=== PATIENT | female | born 1950 | race Caucasian/White ===

== ENCOUNTER 2020-03-16 08:09 | Outpatient (CLI) | payer MEDICARE, SELFPAY ==
--- NOTE | ~2020-03-16 | MM_ITS ---
EXAMINATION: MM screening tam BI w michele HISTORY: Screening mammogram TECHNIQUE: Craniocaudal and mediolateral oblique 3-D tomosynthesis images were obtained and synthetic 2-D images were generated. CAD analysis was submitted and interpreted. COMPARISON: 02/28/2019, 02/25/2018, 02/23/2017 bilateral digital screening mammogram examinations BREAST PARENCHYMAL COMPOSITION: There are scattered areas of fibroglandular density. FINDINGS: There is no evidence of suspicious mass, calcification, or architectural distortion to sugg est malignancy in either breast. There has been no suspicious interval change. IMPRESSION: 1. No mammographic evidence of malignancy. 2. Recommend routine screening mammography in one year. BI-RADS Category 1: Negative Reviewed, dictated and finalized at location A.
== END 2020-03-16 08:10 | disposition home or self-care (01) ==
PROVIDERS: PCP Obstetrics & Gynecology; Visit Provider Obstetrics & Gynecology
DX: Z12.31 Encounter for screening mammogram for malignant neoplasm of breast (principal)
CPT/HCPCS: 77063; 77067

== ENCOUNTER 2021-05-29 16:27 | Outpatient (CLI) | payer MEDICARE, SELFPAY ==
--- NOTE | ~2021-05-29 | MM_ITS ---
EXAMINATION: MM screening tam BI w michele HISTORY: Screening TECHNIQUE: Craniocaudal and mediolateral oblique 3-D tomosynthesis images were obtained and synthetic 2-D images were generated. CAD analysis was submitted and interpreted. COMPARISON: Comparison to multiple prior studies sequentially, with oldest reviewed study dated 02/19. BREAST PARENCHYMAL COMPOSITION: There are scattered areas of fibroglandular density. FINDINGS: There is no evidence of suspicious mass, calcification, or architectural distortion to sugg est malignancy in either breast. There has been no suspicious interval change. IMPRESSION: 1. No mammographic evidence of malignancy. 2. Recommend routine screening mammography in one year. BI-RADS Category 1: Negative Reviewed, dictated and finalized at location A.
== END 2021-05-29 16:28 | disposition home or self-care (01) ==
LOC: ANHIMG 16:30
PROVIDERS: PCP Internal Medicine Gastroenterology; Visit Provider Obstetrics & Gynecology
DX: Z12.31 Encounter for screening mammogram for malignant neoplasm of breast (principal)
CPT/HCPCS: 77063; 77067

== ENCOUNTER 2024-12-02 08:41 | Outpatient (CLI) | payer MEDICARE, SELFPAY ==
--- OUTSIDE RECORDS SUMMARY | 2024-12-02 08:45 | XMS_ITS | Data Portability ---
Author Organization [place] [facility] [employer], Main Office Address [address] [place] [address] Care Team Providers Care Hose Tubing Backer Name Role Phone DARLENE HERNANDEZ Primary Care Provider DARLENE HERNANDEZ Referring Provider Assessment Encounter Date Assessment Date Assessment LastModified by Organization Details LastModified Time 02/17/2023 02/17/2023 Patient returns knee pain right. 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 I injected with 20 mg Kenalog 4 cc 1% lidocaine for prescription drug management will try prednisone taper for pain and inflammation discussed. For prescription drug management will try a prednisone taper for pain and inflammation. Not available 02/17/2023 15:05:55 03/17/2023 03/17/2023 Patient returns status post knee pain right. Pain is localized to the right knee mostly on the anterior aspect. She has a positive patellar compression test and equivocal Pato's. She is a bit better with conservative treatment. I would like to leave well enough alone for this time. I recommend she continue with the gentle exercise and anti-inflammatory medication. She needs another injection we can do it at her convenience. I will see her back in a month for follow-up if she hurts discussed. [email or web address] Not available 03/17/2023 14:34:15 10/27/2023 10/27/2023 This note is dictated and transcribed by [employer]. Bookbinder Apprentice variances may occur. Despite proofreading, typographical errors may occur. Occasional wrong-word or '[id number]' substitutions may have occurred due to the inherent limitations of voice recording. Read the chart carefully and recognize, using context, where substitutions have occurred. [email or web address] Not available 10/27/2023 10:06:11 Plan of Treatment Reminders Order Date Submit Date Provider Last Modified By Organization Details Last Modified Time Details Appointments None recorded. Lab None recorded. Referral None recorded. Procedures injection/a spiration joint/bursa (PROC) - in office procedure, administere d by provider 2022 023 [email or web address] In-Office Order, Internal Use Only DO Not Attach Compendium DO Not Attach Compendium, Do Not Delete/merge, [id number] 3 14:40:19 Surgeries None recorded. Imaging audiogram + tympanogram 2024 025 [facility] ([facility]), [address] [place], [address], 5 04:19:26 US, foot 2023 024 [facility] ([facility]), [address] [place], [address], 4 18:18:28 XR, knee 2022 023 [email or web address] [facility] [place], [address], [place], [address], 3 15:24:07 Medication Orders Ciprodex 0.3 %-0.1 % ear drops,suspe nsion 2024 025 [facility] [address], [place], [id number], 5 10:52:50 Kenalog 10 mg/mL suspension for injection 2022 023 [email or web address] [facility] #36012, [address], [place], [id number], 5 10:33:14 ropivacaine (PF) 5 mg/mL (0.5 %) injection solution 2022 023 [email or web address] [facility] #62790, [address], [place], [id number], 5 10:33:08 prednisone 10 mg tablets in a dose pack 2022 023 [email or web address] [facility] #33886, [address], [place], [id number], 4 09:43:16 Patient TargetsNo targets recorded. Patient Instructions Encounter Date Encounter Id Patient Instructions Last Modified By Organization Details Last Modified Time 09/22/2024 [id number] prescribed Ciprodex for left Eustachian tube dysfunction. Discussed how to apply eardrops. She will have an audiogram and tympanogram completed for hearing loss. Advised after 2 weeks if she continues to have symptoms to notify the office and she will see Dr. Hinojosa to discuss possible surgical options. Not available 09/22/2024 10:53:38 Reason for Referral None Reported. Results Created Date Observation Date Name Description Value Unit Range Abnormal Flag Note LastModifiedBy Organization Detail LastModifiedTime 02/18/20 23 XR, knee No observ ation record ed. [email or web address] [facility] [place] [address], [place], [address], 02/17/2023 15:04:54 11/03/19 24 11/03/2023 US, foot [facility] [address] [facility], [place] [address] Patien t Name: MATEO BEEBE ion #: [id number] Sex: F : 1949 4 Dictat ed By: Elsa Chowdhury Attend ing Physic soco: BUD DALY [facility] soc[facility]: BUD DALY Exam Date: 2023 08:20 AM Exam Name: US FOOT RT LIMITE D Admitt ing Diagno sis(es ): Exam: Ultras ound of the Soft tissue s - right foot Clinic al Histor y: right foot lump Compar favian: None Techni que: Target ed sonogr aphic evalua tion of the soft tissue s of the right foot was obtain ed utiliz ing graysc fabrice and color Dopple r imagin g. Findin gs/ Impres kiley: Bony protru kiley in the region of the navicu lar bone at the area of intere st. No gangli on cyst. Electr onical ly Signed by: Elsa Chowdhury at 2023 17:17: 13 PM Page 1 [email or web address] [facility] ([facility]) [address] [place] [address], [address], 11/10/2023 15:49:18 Result Notes None recorded. Problems Name Problem SNOMED Code Status Onset Date Resolution Date Notes Provider Name and Address Organization Details Recorded Time Bilateral sacroiliac joint pain 2942631916599 9104 Active 2021 Not Available [facility] 3 05:56:48 Right cervical root neuropathy 6106065744071 9108 Active 2021 Not Available [facility] 3 05:56:48 Anterior ankle impingemen t 368442744 Active 2019 Not Available [facility] 3 05:56:48 Lumbar spondylosi s 464657108 Active 2021 Not Available [facility] 3 05:56:48 Low back pain 116433543 Active 2021 Not Available [facility] 3 05:56:49 Knee pain Active Not Available [facility] 3 05:56:49 Osteoarthr itis 262502881 Active Not Available [facility] 3 05:56:49 Foot pain 83325602 Active 2019 Not Available [facility] 3 05:56:49 Carpal tunnel syndrome 76499009 Active Not Available [facility] 3 05:56:49 Derangemen t of knee 98397423 Active Not Available [facility] 3 05:56:49 Pain of right knee joint 8068298597296 00 Active 2022 RAFAT Barillas null, [facility] [employer] [facility] 3 14:21:00 Chondromal acia of right patella 0666169607621 9108 Active 2022 Yohannes Lazo MD [address], [address], [place], [address] , [facility] [employer] [facility] 3 15:05:01 Heart disease 82769960 Active 2023 Madhavi Ponce null, [facility] [employer] [facility] 4 09:45:41 Mass of subcutaneo us tissue of right foot 3385358673710 9105 Active 2023 Bud Black DPM [address], [address], [place], [address] , [facility] [employer] [facility] 4 10:05:00 Osteophyte of bone 7627939883053 00 Active 2023 Bud Black DPM [address], [address], [place], [address] , [facility] [employer] [facility] 4 10:21:21 Sensorineu ral hearing loss 42615391 Active 2024 Nelly Tanner RN null, [facility] [employer] [facility] 5 10:48:47 Dysfunctio n of left eustachian tube 4160601475699 106 Active 2024 MARGARETH Gonzalez [address], [address], [place], [address] , [facility] [employer] [facility] 5 10:52:23 Problem Notes None recorded. Procedures Surgical History Date Name Laterality Status Provider Name and Address Organization Details Recorded Time 02/18/20 Ortho - Cortisone Injection completed Yohannes Lazo MD [address], [address], [place], [address], [facility] [employer] [facility] 02/17/2023 15:03:44 Tubal Ligation completed Not Available [facility] 09/24/2022 05:52:57 tonsillectomy completed Not Available [facility] 09/24/2022 05:52:57 Imaging Results Imaging Date Name Status LastModified by Organiz ation Details LastModified Time 02/17/2023 XR, knee completed [email or web address] [facility] [place] [address], [place], [address], 02/17/2023 15:04:54 11/03/2023 US, foot completed [email or web address] [facility] ([facility]) [address] [facility], [place], [address], 11/10/2023 15:49:18 Procedure Notes None recorded. Medical Equipment None Reported. Allergies Allergen ID Allergen Name Allergen Category Reaction Reaction Severity Criticality Documentation Date Start Date Code Code System Note Provider Name and Address Organization Details Recorded Time 79123 Product containin g penicilli n (product) medicatio n Not available Not available Not available 09/24/2022 16455 8001 SNOMED Not Available [facility] 06:02:43 Medications Name Sig Start Date Stop Date Status Note LastModified by Organization Details LastModified Time prednisone 10 mg tablet TAKE 1 TABLET BY MOUTH TWICE DAILY 10/26 completed Not Available Not Available Not Available azithromyci n 250 mg tablet 12/03 completed Not Available Not Available Not Available ibuprofen 800 mg tablet TK 1 T PO Q 8 H PRN P 04/06 completed Not Available Not Available Not Available ofloxacin 0.3 % eye drops 10/26 completed Not Available Not Available Not Available hydrocodone 5 mg-acetamin ophen 325 mg tablet TK 1 T PO Q 6 H PRN P 12/03 completed Not Available Not Available Not Available bupivacaine HCl 0.5 % (5 mg/mL) injection solution Take 40 mg by injection route. 06/11 completed Not Available Not Available Not Available alendronate 70 mg tablet TK 1 T PO Q WEEK 04/06 completed Not Available Not Available Not Available betamethaso ne, augmented 0.05 % topical cream 06/27 completed Not Available Not Available Not Available Anucort-HC 25 mg suppository USE 1 SUPPOSITO RY DIRECTED QD 04/06 completed Not Available Not Available Not Available clobetasol 0.05 % topical cream APPLY TOPICALLY TO THE AFFECTED AREA TWICE DAILY FOR 30 DAYS 09/22 completed Not Available Not Available Not Available metronidazo le 500 mg tablet TAKE 1 TABLET BY MOUTH TWICE DAILY 10/26 completed Not Available Not Available Not Available levofloxaci n 250 mg tablet TAKE 1 TABLET BY MOUTH EVERY DAY 10/26 completed Not Available Not Available Not Available sulfamethox azole 800 mg-trimetho prim 160 mg tablet 06/27 completed Not Available Not Available Not Available ketorolac 0.5 % eye drops 10/26 completed Not Available Not Available Not Available prednisone 10 mg tablets in a dose pack Take 1 tab by mouth, 3 times a day for 3 daysTake 1 tab by mouth 2 times a day for 2 daysTake 1 tab by mouth once a day for 1 day 10/26 completed Not Available Not Available Not Available prednisolon e acetate 1 % eye drops,suspe nsion INSTILL 1 DROP INTO LEFT EYE QID SHAKE 30 TIMES BEFORE USE 10/26 completed Not Available Not Available Not Available lorazepam 0.5 mg tablet TK 1 T PO QHS PRN FOR INSOMNIA 04/06 completed Not Available Not Available Not Available Kenalog 10 mg/mL suspension for injection Take 20 mg by injection route. 09/22 completed [facility]: [phone] Not Available Not Available Not Available amlodipine 10 mg tablet TAKE 1 TABLET BY MOUTH EVERY DAY active Not Available Not Available No t Available benzonatate 100 mg capsule TAKE 1 CAPSULE BY MOUTH THREE TIMES DAILY NEEDED 10/26 completed Not Available Not Available Not Available hydrocodone 7.5 mg-acetamin ophen 325 mg tablet TK 1 T PO Q 4 H PRN P active Not Available Not Available No t Available pantoprazol e 40 mg tablet,michelle yed release TAKE 1 TABLET BY MOUTH ONCE DAILY active Not Available Not Available No t Available triamcinolo ne acetonide 0.1 % topical ointment APPLY TOPICALLY TO THE AFFECTED AREA TWICE DAILY APPLY TO RASH NEEDED 06/11 completed Not Available Not Available Not Available clotrimazol e-betametha sone 1 %-0.05 % topical cream APPLY CREAM TOPICALLY TO AFFECTED AREA TWICE DAILY 10/26 completed Not Available Not Available Not Available triamcinolo ne acetonide 55 mcg nasal spray aerosol SPRAY 1 SPRAY IN EACH NOSTRIL ONCE DAILY 06/11 completed Not Available Not Available Not Available metoprolol tartrate 50 mg tablet TAKE 1 TABLET BY MOUTH TWICE DAILY WITH FOOD active Not Available Not Available No t Available diclofenac sodium 75 mg tablet,michelle yed release 04/06 completed Not Available Not Available Not Available bisacodyl 5 mg tablet,michelle yed release TK 6 TS PO AT 8 AM ON THE 04/06 completed Not Available Not Available Not Available furosemide 20 mg tablet TK 07/28 T PO D PRF SWELLING 04/06 completed Not Available Not Available Not Available gabapentin 100 mg capsule 04/06 completed Not Available Not Available Not Available cefdinir 300 mg capsule TAKE 1 CAPSULE BY MOUTH TWICE DAILY FOR 5 DAYS 09/22 completed Not Available Not Available Not Available betamethaso ne dipropionat e 0.05 % lotion APPLY LOTION TOPICALLY TO AFFECTED AREA TWICE DAILY 10/26 completed Not Available Not Available Not Available doxycycline hyclate 100 mg tablet TAKE 1 TABLET BY MOUTH TWICE DAILY FOR 10 DAYS 06/28 completed Not Available Not Available Not Available bacitracin- polymyxin B 500 unit-10,000 unit/gram eye ointment APPLY A SMALL AMOUNT INTO AFFECTED EYE [facility] 04/06 completed Not Available Not Available Not Available azithromyci n 500 mg tablet 05/29 completed Not Available Not Available Not Available ciprofloxac in 0.3 %-dexametha sone 0.1 % ear drops,suspe nsion INSTILL 4 DROPS INTO THE LEFT EAR TWICE DAILY FOR 7 DAYS active Not Available Not Available No t Available rosuvastati n 10 mg tablet TAKE 1 TABLET BY MOUTH EVERY DAY 06/11 completed Not Available Not Available Not Available ibandronate 150 mg tablet TAKE 1 TABLET BY MOUTH ONCE MONTHLY active Not Available Not Available No t Available Calcium 600 active Not Available Not A vailable Not Available Centrum active Not Available Not Avail able Not Available Amitiza 24 mcg capsule TAKE 1 CAPSULE BY MOUTH TWICE DAILY WITH FOOD 10/26 completed Not Available Not Available Not Available GaviLyte-G 236 gram-22.74 gram-6.74 gram-5.86 gram oral solution 12/03 completed Not Available Not Available Not Available krill oil active Not Available Not Carolyn ilable Not Available ropivacaine (PF) 5 mg/mL (0.5 %) injection solution Take 20 mg by injection route. 09/22 completed [facility] [phone] Not Available Not Available Not Available Linzess 290 mcg capsule TK ONE C PO QD 04/06 completed Not Available Not Available Not Available Fluzone High-Dose 2014- (PF) 180 mcg/0.5 mL intramuscul ar syringe 04/06 completed Not Available Not Available Not Available Fluad 65yr up(PF)45 mcg(15 mcgx3)/0.5 mL intramuscul ar syringe ADM 0.5ML IM UTD 04/06 completed Not Available Not Available Not Available Fluzone High-Dose (PF) 180 mcg/0.5 mL intramuscul ar syringe ADM 0.5ML IM UTD 04/06 completed Not Available Not Available Not Available Fluad Quad (6 5yr up)(PF) 60 mcg (15 mcg x 4)/0.5mL IM syringe ADM 0.5ML IM UTD 06/27 completed Not Available Not Available Not Available BinaxNOW COVID-19 Ag Self Test kit Use as Directed on the Package 10/26 completed Not Available Not Available Not Available Vitals Date Recorded Body height Body mass index (BMI) Body weight Provider Name and Address Organization Details Last Updated DateTime 02/17/2023 167.64 cm 21 kg/m2 93919.01 g RAFAT Barillas [facility] 02/17/2023 14:18:48 Date Recorded Body height Body mass index (BMI) Body weight Provider Name and Address Organization Details Last Updated DateTime 03/17/2023 167.64 cm 20.8 kg/m2 59894.42 juan RAFAT Barillas [facility] 03/17/2023 14:01:02 Date Recorded Body height Body mass index (BMI) Body weight Provider Name and Address Organization Details Last Updated DateTime 10/27/2023 167.64 cm 21 kg/m2 06452.01 g Madhavi Ybarrad [facility] 10/27/2023 09:40:22 Date Recorded Body height Body mass index (BMI) Body weight Heart rate Systolic blood pressure Diastolic blood pressure Provider Name and Address Organization Details Last Updated DateTime 167.64 cm 21 kg/m2 67433.0 1 g 71 /min 124 mm[Hg] 71 mm[Hg] Madhavi Kris [facility] 09:33:20 Date Recorded Body height Body mass index (BMI) Body weight Provider Name and Address Organization Details Last Updated DateTime 09/22/2024 167.64 cm 22.3 kg/m2 59222.47 g Nelly Tanner RN [facility] 09/22/2024 10:29:38 Social History Question Answer Notes LastModified by Organizat ion Details LastModified Time Tobacco Smoking Status Never Smoker Not Available [facility] 09/24/2022 05:52:38 What Is Your Level Of Alcohol Consumption? None [id number] Information not available 09/24/2022 In The 14 Days Before Symptom Onset, Have You Had Close Contact With A Laboratory-confirm ed COVID-19 While That Case Was Ill? No [id number] Information not available 09/24/2022 In The 14 Days Before Symptom Onset, Have You Had Close Contact With A Person Who Is Under Investigation For COVID-19 While That Person Was Ill? No [id number] Information not available 09/24/2022 Have You Recently Traveled Abroad? No [id number] Information not available 09/24/2022 Sex: Unknown Functional Status None recorded. Mental Status None recorded. Family History Relationship Description Onset Age of this Age Resolved Age Notes LastModified by Organization Details LastModified Time Unspecified Relation Heart disease [id number] Not available 09/24/2022 05:52:58 Unspecified Relation Hypertensive disorder [id number] Not available 09/24/2022 05:52:58 Unspecified Relation Arthritis [email or web address] Not available 024 09:45:57 Unspecified Relation Osteoporosis [email or web address] Not available 08/2023 09:46:08 Notes:NO ENT Medical History Condition Response HIGH CHOLESTEROL / HYPERLIPIDEMIA N DIABETES, TYPE N VASCULAR DISEASE Y HEART DISEASE/HEART PROBLEMS Y HYPERTENSION Y Gynecological HistoryNo gynecological history recorded. Obstetrics History GPAL:G 0 P 0 0 0 0 Past Encounters Encounter ID Performer Location Encounter Start Date Encounter Closed Date Diagnosis/Indication Diagnosis SNOMED-CT Code Diagnosis ICD10 Code Diagnosis Note [id number] [facility]_M [facility]_ DEFAULT_1 _1 , 06/28/2021 00:00:00 06/28/2021 11:25:12 [id number] Yohannes Lazo MD [facility] [place] [address] [place] [address] 09/26/2021 00:00:00 09/26/2021 16:20:51 [id number] Yohannes Lazo MD [facility] [place] [address] [place] [address] 11/07/2021 00:00:00 11/07/2021 11:22:58 [id number] Kip Hinojosa MD [facility] [place] [address] [place] [address] 06/12/2022 00:00:00 06/12/2022 12:00:45 [id number] Yohannes Lazo MD [facility] [place] [address] [place] [address] 02/17/2023 13:52:32 02/17/2023 15:24:07 Pain of right knee joint 5533581862 56241 M25.561 Chondromal acia of right patella 3432316954 0476620 M22.41 [id number] Yohannes Lazo MD [facility] [place] [address] [place] [address] 03/17/2023 13:56:38 03/17/2023 14:43:33 Chondromalacia of right patella 1361904884 7819166 M22.41 [id number] Bud Black DPM [facility] [place] [address] [facility] [address] [place] [address] 10/27/2023 09:37:29 10/27/2023 10:31:10 Mass of subcutaneous tissue of right foot 6465403433 9202634 R22.41 medial right footobtain testing to rule out etiology possible ganglionco ntinue offloading and supportive shoe gearfollow -up to review testing possible MRI depending on test results [id number] Bud Black DPM [facility] [place] [address] [facility] [address] [place] [address] 11/17/2023 09:30:30 11/17/2023 10:38:18 Mass of subcutaneous tissue of right foot 2792001105 3795210 R22.41 ultrasound negexam foot daily for changes if present return for cont testingcon t supportive shoe gearfollow up as needed Osteophyte of bone 46727 01022 15679 M77.9 navicular - as above [id number] Kip Hinojosa MD [facility] [place] [address] [place] [address] 09/22/2024 10:26:14 09/22/2024 10:54:23 Sensorineural hearing loss 34827792 H90.5 Dysfunctio n of left eustachian tube 2962721834 700130 H69.92 Health Concerns Section Related Observation LastModified by Organization Detai ls LastModified Time None Recorded Concern Status LastModified by Organization Details LastModified Time None Recorded Advance Directives Directive None Recorded Payers Encounter Date Sequence Insurance Name Policy Number Policy Rosenberg Covered Member ID Rosenberg Member ID Guarantor Name 02/17/2023 1 [place] Mateo Byrnesy [id number] Mateo Yoshi 02/17/2023 2 [employer] - PLAN G (MEDICARE SUPPLEMENT) Mateo Byrnesy [id number] Mateo Penasco 03/17/2023 1 [place] Mateo Nicholstley [id number] 01 Mateo Yoshi 03/17/2023 2 [employer] - PLAN G (MEDICARE SUPPLEMENT) Mateo Byrnesy [id number] 1 Mateo Penasco 10/27/2023 1 [place] Mateo Byrnesy [id number] 01 Mateo Yoshi 10/27/2023 2 [employer] - PLAN G (MEDICARE SUPPLEMENT) Mateo Nicholstley [id number] 1 Mateo Penasco 11/17/2023 1 [place] Mateoann Byrnesy [id number] 1 [id number] 01 Mateo Penasco 11/17/2023 2 [employer] - PLAN G (MEDICARE SUPPLEMENT) Mateoann Nicholstley [id number] 1 Mateo Penasco 09/22/2024 1 [place] Mateo Byrnesy [id number] 01 Mateo Yoshi 09/22/2024 2 [employer] - PLAN G (MEDICARE SUPPLEMENT) Mateo Nicholstley [id number] 1 Mateo Penasco Notes Date Note Type Note Provider Name and Address Organization Details Recorded Time 02/17/2023 text/html KneeReported bypatient.Location: anterior Quality:aching; burning; throbbing Severity:moderate Duration:continuous since onset Timing:chronic; recurrent; intermittent episodes lasting: Context:cannot identify Alleviating Factors:lying down; rest; elevation; stretching Aggravating Factors:twisting; bending/squatting Associated Symptoms:swelling;w armth;popping/click ing Previous PT:helped a little Yohannes Lazo MD [address], [place] [address], [place], [address], [facility] 02/17/2023 15:06:02 03/17/2023 text/html Patient presents knee pain right. She has got tenderness to palpation pain to manipulation right knee. Pain remains in the front of the knee and it is worse with activity. Yohannes Lazo MD [address], [address], [place], [address], [facility] 03/17/2023 14:35:49 10/27/2023 text/html . Patient is a 73-year-old female who presents the office with complaints of pain to her right foot. Patient states that she has noticed a soft tissue lesion under the skin that has formed and cause pain with shoe gear. Patient denies any changes to the overlying skin. Patient denies any open wounds or infection. 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 Patient states this has been ongoing for about a month or so. Patient denies any treatment for this condition. Bud Black DPM [address], [address], [place], [address], [facility] 10/27/2023 10:09:09 11/17/2023 text/html Patient returns for follow up testing on possible soft tissue mass. ultrasound was neg. and found to be wendy navicular attachment. Patient denies any new complaints. Patient is to watch the area if becomes painful or has any changes to soft tissue to return for further testing. Bud Black DPM [address], [address], [place], [address], [place] 11/17/2023 10:22:25 09/22/2024 text/html This patient has a past medical history significant for carpal tunnel syndrome, heart disease, OA, and lumbar spondylosis who presents to the office with a complaint of left otalgia that began 2.5 weeks ago. She reports presenting to the urgent Care 2 weeks ago and was prescribed cefdinir without symptom relief. She does not believe that her hearing has been greatly affected however her does report that she has been having difficulty hearing. She reports the otalgia as intermittent sharp stabbing pains that are worsened with increasing her left arm above her head. 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 She does not believe that this has any relation to her current symptoms. MARGARETH Gonzalez [address], [address], [place], [address], [place] 09/22/2024 10:53:42 OBGyn Episode No OBEpisode recorded.
--- OUTSIDE RECORDS SUMMARY | 2024-12-02 08:45 | XMS_ITS | Clinical Summary ---
Author Organization [facility] Address [address] [place] [address] Care Team Providers Care Oral And Maxillofacial Pathologist Name Role Phone Unavailable Primary Care Provider Unavailabl e Source Comments [facility],non-owned Affiliates and Associated Physician Practices is amultiple site organization consisting of ambulatory clinics and hospital sitesin [place], [place], [place] and [place]. This disclosure is being madepursuant to the Care Everywhere program and may not contain all information available regarding this patient. Last updated 18.[facility] [employer] Allergies No known active allergies Immunizations Immunization Administration Dates Next Due INFLUENZA VACCINE, HIGH-DOSE , QUADR. (FLUZONE HIGH-DOSE QUADRIVALENT; 65Y+), 0.7 ML (HD-IIV4) 05/13/2016 Social History Tobacco Use Types Packs/Day Years Used Date Smoking Tobacco: Never Assessed Comments Unknown Sex and Gender Information Value Date Recorded Sex Assigned at Not on file Legal Sex Female 1:26 PM CDT Gender Identity Not on file Sexual Orientation Not on file Plan of Treatment Health Maintenance Due Date Last Done Comments BONE DENSITY TESTING 1950 HEPATITIS C SCREENING 01/23/1966 DTAP/TDAP/TD VACCINES (1 - Tdap) 01/27/1967 PNEUMOCOCCAL VACCINE 50+ (1 of 1 - PCV) 01/27/1998 ZOSTER VACCINE (1 of 2) 01/27/1998 Respiratory Syncytial Virus (RSV) Vaccine Pt: or over 60 yrs (1 - 1-dose 75+ series) 01/27/2023 COVID-19 VACCINE (1 - 2023-2 5 season) 2024 DEPRESSION SCREENING 07/27/2024 INFLUENZA VACCINE (Season Ended) 2025 05/13/20 16 HEPATITIS B VACCINE Aged Out No longe r eligible based on patient's age to complete this topic HIB VACCINE Aged Out No longer eligi ble based on patient's age to complete this topic HPV VACCINE Aged Out No longer eligi ble based on patient's age to complete this topic MENINGOCOCCAL (Group B) VACC INE SHARED DECISION-MAKING Aged Out No longer eligibl e based on patient's age to complete this topic MENINGOCOCCAL GROUPS A/C/Y/W VACCINE Aged Out No longer eligible b ased on patient's age to complete this topic Insurance LUIS
--- OUTSIDE RECORDS SUMMARY | 2024-12-02 08:45 | XMS_ITS | CONTINUITY OF CARE DOCUMENT ---
Author Name luis smith Address Unknown Organization [facility] Address [address] [place] [address] Phone [phone] Care Team Providers Care Spd Tech Name Role Phone Antonio CARMONA, Hugo Unavailable DARLENE HERNANDEZ MD Unavailable DARLENE HERNANDEZ MD Unavailable [phone] PROBLEMS Condition Status Date Provider Notes Exposure to SARS-associated coronavirus active Hugo Alvarez MD Other symptoms involving cardiovascular system completed - Hugo Alvarez MD Chest pain, non-cardiac active Hugo smith MD Mitral insufficiency, mild active Hugo hughes MD Aortic regurgitation, mild active Hugo hughes MD Hypertension active ? Hugo Alvarez MD Hyperlipidemia active Hugo Alvarez MD Cardiology examination active Hugo Alvarez MD ENCOUNTERS Date Type Provider Location Encounter Diag nosis - In-person encounter Office Visit Hugo Alvarez MD [facility] Office Cardiology examinati on - In-person encounter Office Visit Hugo Alvarez MD [facility] - In-person encounter Office Visit Hugo Alvarez MD [facility] Hyperlipidemia - In-person encounter Office Visit Hugo Alvarez MD [facility] - In-person encounter Office Visit Hugo Alvarez MD [facility] - In-person encounter Office Visit Hugo Alvarez MD [facility] - In-person encounter Office Visit Hugo Alvarez MD [facility] - In-person encounter Office Visit Hugo Alvarez MD [facility] - In-person encounter Office Visit Hugo Alvarez MD [facility] - In-person encounter Office Visit Hugo Alvarez MD [facility] - In-person encounter Office Visit Hugo Alvarez MD [facility] [place] - In-person encounter Office Visit Hugo Alvarez MD [facility] - In-person encounter Office Visit Hugo Alvarez MD [facility] - In-person encounter Office Visit Hugo Alvarez MD [facility] Other symptoms involving cardiovascular systemMitral insufficiency, mild - In-person encounter Office Visit Hugo Alvarez MD [facility] Chest pain, non-cardiacMitral insufficiency, mildAortic regurgitation, mildHypertension VITAL SIGNS Date Observation Value Provider Body Mass Index (Ratio) 21.61 kg/m2 Petros Alvarez MD blood pressure, diastolic 68 mm[Hg] Moon Duggan blood pressure, systolic 112 mm[Hg] Mandy Duggan oxygen saturation, oximetry 98 % Lilian Duggan pulse rate 58 /min Lilian Duggan respiratory rate E&M 12 /min Lilian Duggan weight E&M 138 [lb_av] Lilian Duggan height E&M 67 [in_i] Lilian Duggan blood pressure, cuff size regular Moon Duggan Body Mass Index (Ratio) 21.30 kg/m2 Petros Alvarez MD blood pressure, diastolic 68 mm[Hg] Li nkLog blood pressure, systolic 99 mm[Hg] Esperanza Hensonog pulse rate 67 /min Rosa [place] blood pressure, cuff size regular Madisyn powell [place] blood pressure, diastolic 68 mm[Hg] Madisyn [facility] blood pressure, systolic 110 mm[Hg] Simon [facility] respiratory rate E&M 16 /min Rosa Degroot brittany oxygen saturation, oximetry 98 % [facility] weight E&M 136 [lb_av] [facility] height E&M 67 [in_i] [facility] Body Mass Index (Ratio) 19.89 kg/m2 Petros Alvarez MD blood pressure, diastolic 74 mm[Hg] Little nkLogjosé miguel blood pressure, systolic 117 mm[Hg] [facility], diastolic 74 mm[Hg] [facility] Jimenez blood pressure, systolic 117 mm[Hg] Israel Jimenez oxygen saturation, oximetry 96 % Tia Jimenez pulse rate 65 /min Tia Jimenez respiratory rate E&M 16 /min Tia pyle weight E&M 127 [lb_av] Tia Jimenez height E&M 67 [in_i] Tia Jimenez Body Mass Index (Ratio) 21.30 kg/m2 Petros Alvarez MD blood pressure, cuff size regular Marques Velez blood pressure, diastolic 90 mm[Hg] Tr jose david Velez blood pressure, systolic 120 mm[Hg] Raisa Velez oxygen saturation, oximetry 99 % Germán Velez respiratory rate E&M 16 /min Germán Velez pulse rate 60 /min Germán Velez weight E&M 136 [lb_av] Germán Velez height E&M 67 [in_i] Germán Velez Body Mass Index (Ratio) 20.52 kg/m2 Petros Alvarez MD blood pressure, cuff size regular Ke rri Candy blood pressure, diastolic 60 mm[Hg] Ke rri Candy blood pressure, systolic 92 mm[Hg] Norma marco Gupta oxygen saturation, oximetry 98 % Layla Gupta respiratory rate E&M 16 /min Layla love pulse rate 79 /min Layla Azul lder weight E&M 131 [lb_av] Layla Azul er height E&M 67 [in_i] Layla Stormye er Body Mass Index (Ratio) 20.20 kg/m2 Petros Alvarez MD blood pressure, diastolic 80 mm[Hg] Jluis Sanchez blood pressure, systolic 129 mm[Hg] Maritza Sanchez oxygen saturation, oximetry 94 % Yajaira Sanchez respiratory rate E&M 18 /min Lg Sanchez pulse rate 59 /min Yajaira marin weight E&M 129 [lb_av] Yajaira marin height E&M 67 [in_i] Yajaira marin Body Mass Index (Ratio) 21.77 kg/m2 Petros Alvarez MD blood pressure, diastolic 70 mm[Hg] Da rachelle Arianna blood pressure, systolic 118 mm[Hg] Dac ia Arianna oxygen saturation, oximetry 98 % Claudia Arianna respiratory rate E&M 16 /min Claudia V oss pulse rate 60 /min Claudia Arianna weight E&M 139 [lb_av] Claudia Arianna height E&M 67 [in_i] Claudia Arianna Body Mass Index (Ratio) 22.46 kg/m2 Petros Alvarez MD blood pressure, diastolic 68 mm[Hg] Jluis Braun Daniel blood pressure, systolic 109 mm[Hg] Maritza Pride Sanchez oxygen saturation, oximetry 96 % Yajaira Sanchez respiratory rate E&M 18 /min Lg Sanchez pulse rate 55 /min Yajaira Watts caluis weight E&M 143.4 [lb_av] Yajaira limluis height E&M 67 [in_i] Yajaira Watts tania Body Mass Index (Ratio) 22.39 kg/m2 Petros Alvarez MD blood pressure, diastolic 80 mm[Hg] Ke rri Candy blood pressure, systolic 130 mm[Hg] Norma Gupta blood pressure, cuff size large Ke rri Candy oxygen saturation, oximetry 98 % Layla Gupta respiratory rate E&M 18 /min Layla love pulse rate 67 /min Layla alegriaer weight E&M 143 [lb_av] Layla Liang lder height E&M 67 [in_i] Layla Liang lder Body Mass Index (Ratio) 22.08 kg/m2 Petros Alvarez MD blood pressure, cuff size regular Ke rri Candy blood pressure, diastolic 75 mm[Hg] Ke rri Waltuenepia blood pressure, systolic 118 mm[Hg] Norma lara Candy oxygen saturation, oximetry 98 % Layla Godoyleif respiratory rate E&M 20 /min Layla Matson rickieglynnpia pulse rate 76 /min Layla Liang airam weight E&M 141 [lb_av] aLyla Liang airam height E&M 67 [in_i] Layla Liang [facility] [place] Body Mass Index (Ratio) 22.39 kg/m2 Petros Alvarez MD pulse rate 66 /min Annamaria Johnson respiratory rate E&M 17 /min Annamaria Johnson blood pressure, diastolic 80 mm[Hg] Cade Johnson blood pressure, systolic 105 mm[Hg] Enzo Johnson oxygen saturation, oximetry 99 % Annamaria Johnson blood pressure, cuff size regular Cade Johnson weight E&M 143 [lb_av] Annamaria Johnson height E&M 67 [in_i] Annamaria Johnson Body Mass Index (Ratio) 22.39 kg/m2 Petros Alvarez MD blood pressure, cuff size regular Merle Santa blood pressure, diastolic 70 mm[Hg] Merle Santa blood pressure, systolic 110 mm[Hg] Megan Santa oxygen saturation, oximetry 98 % Ivonne Santa pulse rate 64 /min Ivonne Santa respiratory rate E&M 16 /min Ivonne Santa weight E&M 143 [lb_av] Ivonne Santa height E&M 67 [in_i] Ivonne Santa Body Mass Index (Ratio) 23.49 kg/m2 Petros Alvarez MD blood pressure, cuff size regular Germán Gupta blood pressure, diastolic 91 mm[Hg] Germán Gupta blood pressure, systolic 162 mm[Hg] Norma Burrowsradhaana oxygen saturation, oximetry 99 % Layla Gupta respiratory rate E&M 16 /min Layla zuluagarahdaana pulse rate 87 /min Layla Liang [facility] [place] weight E&M 150 [lb_av] Layla Liang er height E&M 67 [in_i] Layla Liang er blood pressure, diastolic 86 mm[Hg] Jluis Sanchez blood pressure, systolic 146 mm[Hg] Maritza Pride Sanchez pulse rate 65 /min Yajaira Watts caon oxygen saturation, oximetry 97 % Yajaira Sanchez respiratory rate E&M 18 /min Lg Sanchez Body Mass Index (Ratio) 24.15 kg/m2 Berta Sanchez weight E&M 154.2 [lb_av] Yajaira limon Body Mass Index (Ratio) 23.49 kg/m2 Anea jessica Jin blood pressure, diastolic 93 mm[Hg] An eatris Jin blood pressure, systolic 166 mm[Hg] Ane atris Jin pulse rate 62 /min Aneatrjenny Abdi oxygen saturation, oximetry 98 % Aprilatrjenny Abdi respiratory rate E&M 17 /min Aneatri s Jin weight E&M 150 [lb_av] Aneatris Jin height E&M 67 [in_i] Dwight Abdi ALLERGIES Allergy Name Onset Date Reaction Criticality Status PCN Low Criticality active HISTORY OF MEDICATION USE Medication Status Instructions Dates Provider Indications Com ments metoprolol tartrate 50 mg tablet active Take 1 tablet by mouth twice a day 7 Hugo Alvarez MD clotrimazole-beta methasone 1-0.05% cream active Mya Gomez NP pantoprazole 40 mg tablet,delayed release (/EC) completed - 0 Mya Gomez NP rosuvastatin 10 mg tablet completed Take 1 tablet by mouth once a day TAKE 1 TABLET DAILY 4 - 9 Hugo Alvarez MD VISION VITAMINS TABS active 1 tablet once a day Mya Gomez NP MULTIVITAMINS ORAL CAPSULE active 1 tablet once a day Mya Gomez NP Krill Oil ([place] 3 and 6) 1000-130(40-80) mg capsule active 1 capsule once a day Mya Gomez NP CINNAMON CAPSULE completed 1 cap daily - 8 Hugo Alvarez MD VOLTAREN GEL completed as needed for back pain 6 - 8 Cody Luc OXY-POWDER completed 3 pills at bedtime 6 - 8 Cody Turner ibandronate 150 mg tablet active 1 tablet once a month Mya Gomez NP FUROSEMIDE 20 MG ORAL TABLET completed 1/2 tab daily as needed for swelling 6 - 9 Yajaira Sanchez amlodipine 10 mg tablet active Take 1 tablet by mouth once a day 0 Mya Gomez NP VITAMIN C TABLET completed once daily - 9 Yajaira Sanchez FERROUS SULFATE 325 (65 Fe) MG ORAL TABLET completed ONE PER DAY - 9 Yajaira Sanchez pantoprazole 40 mg tablet,delayed release (DR/EC) completed 1 tablet once a day - 3 Tia Jimenez metoprolol tartrate 50 mg tablet completed 1 tablet twice a day 5 - 7 Hugo Alvarez MD FISH OIL CAPSULE completed ONE TAB. 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 Hugo Alvarez MD social history reviewed E&M revi ewed - no changes required Hugo Alvarez MD seatbelt usage 100 % Layla hirsch alcohol use no Layla Liang lder passive cigarette sm keyana exposure no Layla Gupta smoking status Never smoker Layla perezer social history reviewed E&M revi ewed - no changes required Hugo Alvarez MD social history reviewed E&M revi ewed - no changes required Hugo Alvarez MD seatbelt usage 100 % Ivonne Santa alcohol use no Ivonnekiah Santa passive cigarette sm keyana exposure no Ivonne Santa smoking status Never smoker Ivonne Kiet social history reviewed E&M revi ewed - no changes required Hugo Alvarez MD seatbelt usage 100 % Layla Wheeler [place] alcohol use no Layla Liang galen passive cigarette sm keyana exposure no Layla Godoyleif smoking status Never smoker Layla Wheeler [place] social history reviewed E&M revi ewed - no changes required Hugo Alvarez MD seatbelt usage 100 % Yajaira Stone alcohol use no Yajaira marin passive cigarette sm keyana exposure no Yajaira Sanchez smoking status Never smoker Yajaira Stone seatbelt usage 100 % Hugo Alvarez MD alcohol use no Hugo Mcfadden passive cigarette sm keyana exposure no Hugo Alvarez MD social history E&M Marital Statu s: C hildren: 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 Hugo Alvarez MD social history reviewed E&M revi ewed - no changes required Hugo Alvarez MD smoking status Never smoker Aneatris Brow n FAMILY HISTORY Family Member Condition Father Family History Unkno wn Mother Family History of Co ronary Artery Disease: INSURANCE PROVIDERS Payer name Policy type / Coverage type Dominick red democrat ID CIGNA MEDICARE SUPPLEMENT Commercial insurance c [facility] [id number] [place] Medicare [id number] ADVANCE DIRECTIVES Name Date DISCUSSED - NO DECISION MADE TREATMENT PLAN Date Name Performer [id number],B, Hugo smith MD [id number],S, Hugo smith MD [id number],S, Hugo smith MD [id number],S, Hugo smith MD [id number],S, Hugo smith MD [id number],S, Hugo smith MD [id number],S, Hugo smith MD [id number],B, Hugo smith MD Cardiology Hugo Alvarez MD Cardiology Hugo Alvarez MD Cardiology: H er updated medication list for this problem includes: Amlodipine 10 Mg Tablet (Amlodipine) ..... Take 1 tablet by mouth once a day Metoprolol Tartrate 50 Mg Tablet (Metoprolol tartrate) ..... 1 tablet twice a day Hugo Alvarez MD Cardiology: n o recurrentce, negative stress test 2017 Hugo Alvarez MD Cardiology:2019: ECHO trace MR, trace AR, trace TR Mya Gomez BROADCAST PROGRAM DIRECTOR Cardiology:2019: ECH O trace MR, trace AR, trace TR WILL RECHECK ECHO Mya Gomez BROADCAST PROGRAM DIRECTOR Cardiology: B P today: 110/68 P rior BP: 117/74 (07/29/2022) Her updated medication list for this problem includes: Amlodipine 10 Mg Tablet (Amlodipine) ..... Take 1 tablet by mouth once a day Metoprolol Tartrate 50 Mg Tablet (Metoprolol tartrate) ..... 1 tablet twice a day Mya Gomze BROADCAST PROGRAM DIRECTOR Cardiology:07/30/22 ch ol 184, trig 68, HDL 59, LDL 111 will check lipid panel Mya Powellcarmelo BROADCAST PROGRAM DIRECTOR Cardiology:no recurrentce, negat contreras stress test 2016 Mya Hillchago BROADCAST PROGRAM DIRECTOR Cardiology Hugo Alvaerz MD Cardiology Hugo Alvarez MD Cardiology Hugo Alvarez MD Cardiology Hugo Alvarez MD Cardiology Hugo Alvarez MD Cardiology Hugo Alvarez MD Cardiology Hugo Alvarez MD Cardiology Hugo Alvarez MD Cardiology Follow up Hugo mart MD Cardiology Follow up Hugo mart MD Cardiology Follow up Hugo mart MD Cardiology Hugo Alvarez MD Cardiology Hugo Alvarez MD Cardiology Hugo Alvarez MD Cardiology Hugo Alvarez MD Cardiology follow up Hugo mart MD Cardiology follow up Hugo mart MD Cardiology follow up Hugo mart MD Cardiology follow up Hugo mart MD Cardiology Hugo Alvarez MD Cardiology Hugo Alvarez MD Cardiology Hugo Alvarez MD Cardiology Hugo Alvarez MD Cardiology Follow up Hugo mart MD Cardiology Follow up Hugo mart MD Cardiology Follow up Hugo mart MD Cardiology Follow up Hugo mart MD Cardiology Follow up Hugo mart MD Cardiology Follow up Hugo mart MD Cardiology Follow up Hugo mart MD Cardiology Follow up Hugo mart MD Cardiology Hugo Alvarez MD Cardiology Hugo Alvarez MD Cardiology Hugo Alvarez MD Cardiology Hugo Alvarez MD Cardiology Hugo Alvarez MD Cardiology Hugo Alvarez MD Cardiology Hugo Alvarez MD Cardiology Hugo Alvarez MD Cardiology Follow u p Hugo olmos MD Cardiology Follow u p Hugo olmos MD Cardiology Follow u p Hugo olmos MD Cardiology Follow u p Hugo olmos MD Cardiology Hugo Alvarez MD Cardiology Hugo Alvarez MD Cardiology Hugo Alvarez MD Cardiology Hugo Alvarez MD new patient visit Hugo Alvarez MD new patient visit Hugo Alvarez MD new patient visit Hugo Alvarez MD new patient visit: H er updated medication list for this problem includes: Metoprolol Tartrate 50 Mg Tabs (Metoprolol tartrate) ..... One tab. twice daily Hugo Alvarez MD Date Name LIPID PANEL Complete Echo COMPREHENSIVE METABO LIC PANEL, W/EGFR LIPID PANEL HEMOGLOBIN A1c LIPID PANEL COVID19 nasal swab ( LC) Complete Echo Complete Echo STR - Nuclear Complete Echo HISTORY OF PROCEDURES Procedure Date Procedure Name Provider Procedure Notes S tatus EKG Hugo Alvarez MD complete d EKG Hugo Alvarez MD complete d EKG Hugo Alvarez MD complete d EKG Hugo Alvarez MD complete d EKG Hugo Alvarez MD complete d EKG Hugo Alvarez MD complete d SNOMED-CT: 632422042 [id number] Current Medications Documented Hugo Alvarez MD completed SNOMED-CT: 877117649 472726 Current Medications Documented Hugo Alvarez MD completed SNOMED-CT: 437578052 187307 Current Medications Documented Hugo Alvarez MD completed Stress EKG Miracle Hatfield MD complet ed Regadenoson, 4 units Hugo Alvarez MD completed Cardiolite, 2 units Hugo Alvarez MD completed SPECT Images Miracle Hatfield MD compl eted EKG Hugo Alvarez MD complete d SNOMED-CT: 203613242 242315 Current Medications Documented Hugo Alvarez MD completed EKG Hugo Alvarez MD complete d SNOMED-CT: 204850450 664756 Current Medications Documented Hugo Alvarez MD completed EKG Hugo Alvarez MD complete d
--- OUTSIDE RECORDS SUMMARY | 2024-12-02 08:45 | XMS_ITS | Continuity of Care Document ---
Author Organization [facility] Address [address] [place] [address] [place] [address] Phone Care Team Providers Care Document Imaging Specialist Name Role Phone Unavailable Unavailable Unavailable Advance Directives Directive Yes / No Effective Date File Name No Information Encounters Encounter Description Practice Location Reason(s) For Visit Diagnoses Date Provider Providers Copied on Encounter [facility], [id number] [place] [address] [address], [place], [place], [id number], [place] tel:[phone] [facility] No Information Mar-0 2-200 0 No Information Family History Family Member Type Diagnosis Age At Onset No Information Payers Payer name Insurance type Covered constitution party ID Authoriza tion(s) No Information Social History Type Description Quantity Date Captured Comments Sex Female Smoking Status No Information Chief Complaint And Reason For Visit No Information Reason For Referral Reason For Referral No Information History Of Present Illness Encounter Date Complaint History Of Prese nt Illness No Information Functional Status Date Functional Assessmen t No Information Instructions Date Instruction Additional Infor mation No Information Assessments Type Assessment Date No Information Patient Care Teams Name Effective Dates (start - stop) Status Members No Information
[2024-12-02 09:20] LABS: Basophils Percent Auto 0.7 % (0.2-1.2); Eosinophils Absolute Auto 0.2 K/mm3 (0-0.3); Eosinophils Percent Auto 4.4 % (0-4.4); Hematocrit 42.9 % (37.0-47.0); Hemoglobin 14.1 g/dL (12.0-15.0); Immature Granulocyte Absolute 0.02 K/mm3 (0.00-0.031); Immature Granulocyte Percent A 0.4 % (0-0.5); Lymphocytes Absolute Auto 1.93 K/mm3 (0.9-3.2); Lymphocytes Percent Auto 35.5 % (18.3-44.2); Mean Corpuscular HGB Conc 32.9 g/dl (32-36); Mean Corpuscular Hemoglobin 29.5 pg (26-34); Mean Corpuscular Volume 89.7 fl (80-100); Monocytes Absolute Auto 0.4 K/mm3 (0.1-0.6); Monocytes Percent Auto 7.7 % (2.6-8.5); Neutrophils Absolute Auto 2.8 K/mm3 (1.3-6.7); Neutrophils Percent Auto 51.3 % (45.5-73.1); Platelet Count Result 304 k/mm3 (150-375); Red Blood Count 4.78 M/mm3 (4.2-5.4); Red Cell Distribution Width 12.1 % (11.5-14.5); White Blood Count 5.4 K/mm3 (4.5-10.0)
[2024-12-02 09:30] LABS: Add Urine Microscopic? NO; Appearance Urine Clear (Clear); Bilirubin Urine Negative (Negative); Blood Urine Negative (Negative); Color Urine Yellow (Yellow); Glucose Urine UA Negative (Negative); Ketones Urine Negative (Negative); Leukocyte Esterase Ur Negative LEU/UL (Negative); Nitrate Urine Negative (Negative); Protein Urine Negative (Negative); Urobilinogen Urine 0.2 mg/dL (<2.0); pH Urine 8.5 (5.0-9.0)
[2024-12-02 09:30] LABS: Alanine Aminotransferase 29 U/L (6-35); Albumin Level 4.3 g/dL (3.5-5.1); Alkaline Phosphatase 79 U/L (38-126); Anion Gap 6 mmol/L (4-12); Aspartate Amino Transferase 43 U/L (14-36); Bilirubin,Total 0.7 mg/dL (0.2-1.3); Blood Urea Nitrogen 13 mg/dL (7-17); Calcium 9.5 mg/dL (8.4-10.2); Carbon Dioxide 30 mmol/L (22-30); Chloride 102 mmol/L (98-107); Cholesterol 230 mg/dL (0-200); Estimated Glomerular Filt Rate > 60; Glucose 92 mg/dL (65-110); HDL Direct 59 mg/dL; Potassium 4.8 mmol/L (3.4-5.0); Sodium 138 mmol/L (137-145); Triglycerides 116 mg/dL (<150)
[2024-12-02 09:41] LABS: LDL Cholesterol Direct 111 mg/dL
== END 2024-12-02 08:42 | disposition home or self-care (01) ==
PROVIDERS: PCP Internal Medicine Gastroenterology; Visit Provider Family Medicine
DX: K21.9 Gastro-esophageal reflux disease without esophagitis (principal); I10 Essential (primary) hypertension; E78.2 Mixed hyperlipidemia
CPT/HCPCS: 36415; 80048; 80061; 80076; 81003; 84443; 85025

== ENCOUNTER 2025-02-15 15:02 | Outpatient (CLI) | payer MEDICARE, SELFPAY ==
--- NOTE | ~2025-02-15 | MM_ITS ---
EXAMINATION: MM screening tam BI w michele HISTORY: Screening TECHNIQUE: Craniocaudal and mediolateral oblique 3-D tomosynthesis images were obtained and synthetic 2-D images were generated. CAD analysis was submitted and interpreted. COMPARISON: Comparison to multiple prior studies sequentially, with oldest reviewed study dated 02/23. BREAST PARENCHYMAL COMPOSITION: There are scattered areas of fibroglandular density. FINDINGS: There is no evidence of suspicious mass, calcification, or architectural distortion to sug gest malignancy in either breast. IMPRESSION: 1. No mammographic evidence of malignancy. 2. Recommend routine screening mammography in one year. BI-RADS Category 1: Negative Reviewed, dictated and finalized at location B.
--- OUTSIDE RECORDS SUMMARY | 2025-02-15 15:07 | XMS_ITS | Continuity of Care Document ---
Author Organization [facility] Address [address] [place] [address] [place] [address] Phone Care Team Providers Care Client Relations Specialist Name Role Phone Unavailable Unavailable Unavailable Advance Directives Directive Yes / No Effective Date File Name No Information Encounters Encounter Description Practice Location Reason(s) For Visit Diagnoses Date Provider Providers Copied on Encounter [facility], [id number] [place] [address] [address], [place], [place], [id number], [place] tel:[phone] LZZ [facility] No Information Mar-0 2-200 0 No Information Family History Family Member Type Diagnosis Age At Onset No Information Payers Payer name Insurance type Covered libertarian ID Authoriza tion(s) No Information Social History [...]
--- OUTSIDE RECORDS SUMMARY | 2025-02-15 15:07 | XMS_ITS | Clinical Summary ---
Author Organization [facility] Address [address] [place] [address] Care Team Providers Care Commercial Loan Manager Name Role Phone Unavailable Primary Care Provider Unavailabl e Source Comments [facility],non-owned Affiliates and Associated Physician Practices is amultiple site organization consisting of ambulatory clinics and hospital sitesin [place], [place], [place] and [place]. This disclosure is being madepursuant to the Care Everywhere program and may not contain all information available regarding this patient. Last updated 18.[facility] Allergies No known active allergies Immunizations Immunization [...] season) 2024 DEPRESSION SCREENING 07/27/2024 INFLUENZA VACCINE (#1) 2025 05/13/2016 HEPATITIS B VACCINE Aged Out No longe [...]
--- OUTSIDE RECORDS SUMMARY | 2025-02-15 15:07 | XMS_ITS | Data Portability ---
Author Organization [facility], Main Office Address [address] [place] [address] Care Team Providers Care Service Or Work Dispatcher Chief Name Role Phone DARLENE HERNANDEZ Primary Care Provider DARLENE HERNANDEZ Referring Provider MICHAEL SHAW Primary Care Provider Assessment Encounter Date Assessment Date Assessment LastModified by Organization Details LastModified Time 03/17/2023 03/17/2023 Patient returns status post knee pain right. Pain is localized to the right knee mostly on the anterior aspect. She has a positive patellar compression test and equivocal Pato's. She is a bit better with conservative treatment. I would like to leave well enough alone for this time. I recommend she continue with the gentle exercise and anti-inflammator y medication. She needs another injection we can do it at her convenience. I will see her back in a month for follow-up if she hurts discussed. [email or web address] Not available 03/17/2023 14:34:15 10/27/2023 10/27/2023 This note is dictated and transcribed by [employer]. Language Asst variances may occur. Despite proofreading, typographical errors may occur. Occasional wrong-word or '[id number]' substitutions may have occurred due to the inherent limitations of voice recording. Read the chart carefully and recognize, using context, where substitutions have occurred. [email or web address] Not available 10/27/2023 10:06:11 Plan of Treatment Reminders Order Date Submit Date Provider Last Modified By Organization Details Last Modified Time Details Appointments None recorded. Lab None recorded. Referral None recorded. Procedures None recorded. Surgeries None recorded. Imaging CT, head, w/wo contrast - FAX RESULTS TO . THANKS! 2024 025 [facility] ([facility] Sched[facility]), [address] [place], [address], 5 13:20:58 US, foot 2023 024 [facility] ([facility] Scheduling), [address] [place], [address], 4 18:18:28 Medication Orders Ciprodex 0.3 %-0.1 % ear drops,susp ension 2024 025 [email or web address] [id number], [address], [place], [id number], 5 08:35:02 Patient TargetsNo targets recorded. Patient Instructions Encounter Date Encounter Id Patient Instructions Last Modified By Organization Details Last Modified Time 09/22/2024 [id number] prescribed Ciprodex for left Eustachian tube dysfunction. Discussed how to apply eardrops. She will have an audiogram and tympanogram completed for hearing loss. Advised after 2 weeks if she continues to have symptoms to notify the office and she will see Dr. Hinojosa to discuss possible surgical options. [email or web address] Not available 09/22/2024 10:53:38 12/29/2024 [id number] to rule out MIXING OPERATOR disease a head CT is ordered. The audiogram reveals mild to moderate loss. [email or web address] Not available 12/29/2024 14:48:39 Reason for Referral None Reported. Results Created Date Observation Date Name Description Value Unit Range Abnormal Flag Note LastModifiedBy Organization Detail LastModifiedTime 01/13/2001/12/2025 CREAT ININE , I-STA T creatinine 0.9 mg/dL 0.6-1. 3 Not Available [facility] (Lab) [address] [place], [address], 01/16/2025 13:12:08 02/18/20 23 XR, knee No observ ation record ed. [email or web address] [facility] [address], [place], [address], 02/17/2023 15:04:54 11/03/19 24 11/03/2023 [facility], foot [facility] [address] [place] [address] Patien t Name: MATEO BEEBE Access ion #: [id number] Sex: F : 1949 4 Dictat ed By: Elsa Chowdhury Attend ing Physic soco: BUD DALY Orderi ng Physic soco: BUD DALY Exam Date: 2023 08:20 AM Exam Name: US FOOT RT LIMITE D Admitt ing Diagno sis(es ): Exam: Ultras ound of the Soft tissue s - right foot Clinic al Histor y: right foot lump Compar bharti: None Techni que: Target ed sonogr aphic evalua tion of the soft tissue s of the right foot was obtain ed utiliz ing graysc fabrice and color Dopple r imagin g. Findin gs/ Impres vijaya: Bony protru vijaya in the region of the navicu lar bone at the area of intere st. No gangli on cyst. Electr onical ly Signed by: Elsa Chowdhury at 2023 17:17: 13 PM Page 1 [email or web address] [facility] (Imaging) [address] [place], [address], 11/10/2023 15:49:18 12/31/19 25 11/09/2024 audio gram + tympa nogra m No observ ation record ed. [email or web address] [facility] [address] [facility] [address], [place], [address], 12/30/2024 09:54:55 01/13/20 25 01/12/2025 CT, head, w/wo contr ast [facility] [address] [place] [address] [phone] Patien t Name: MATEO BEEBE Access ion #: [id number] Sex: F : 1949 6 Dictat ed By: MARII MOTLEY Attend ing Physic soco: JOHN JOHNSON Orderi Physic soco: ALEX HERRERA Exam Date: 2024 09:03 AM Exam Name: CT HEAD W/WO Admitt ing Diagno sis(es ): Access ion: Examin ation: CT HEAD W/WO CLINIC AL INDICA TION: Otalgi a, left ear. COMPAR BHARTI: None. CONTRA ST USED: Isovue 370. TECHNI QUE: The examin ation was perfor med obtain ing 5 mm slices withou t and with contra st. CT scan done accord ing to ALARA (As Low as Reason ably Achiev able). Multip lanar recons tructi ons were obtain ed. FINDIN GS: SUPRAT ENTORI AL BRAIN: Cerebr al Hemisp heres: There is promin ence of the cerebr al cortic al sulci, cerebe llar foliae , zachary n fissur es, basal cister ns and ventri cular system . There is no midlin e shift or mass effect , intra or extra- axial fluid collec tions or hemorr walter. Perive ntricu lar White Matter /Basal Gangli a: Lacune s in bilate ral customer solutions supervisor al capsul es are noted. Minima l shannon and parave ntricu lar deep white matter ischem ic change s are noted. No other abnorm al areas of altere d attenu ation within the perive ntricu lar white matter or basal gangli a. RURAL CARRIER ASSOCIATE IOR FOSSA: The brains tem is normal and the visual ized cerebe llar hemisp heres are otherw ise unrema rkable . Page 1 [facility] [address], [place] [address] Patien t Name: MATEO BEEBE Access ion #: [id number] Sex: F : 1949 6 Dictat ed By: MARII MOTLEY Attend ing Physic soco: ALEX HERRERA Orderi Physic soco: FAWNJean ALEX STEEN Exam Date: 2024 09:03 AM Exam Name: CT HEAD W/WO Admitt ing Diagno sis(es ): VENTRI CULAR SYSTEM : There is no eviden ce of hydroc ephalu s or transe pendym al flow of cerebr mary l fluid. SKULL BASE AND PARASE LLAR REGION : The skull base is normal with no parase llar masses or abnorm alitie s identi fied. Bilate ral customer solutions supervisor al audito ry canals appear intact with good pneuma tizati on of the mastoi ds. CALVAR IUM AND SCALP REGION : No abnorm ality is seen. PARANA VIJAYA SINUSE S: No signif icant inflam matory change s are identi fied in the parana vijaya sinuse s. IMPRES VIJAYA: 1. Age-re lated atroph y. 2. Lacune s in bilate ral customer solutions supervisor al capsul es are noted. 3. Minima l shannon and parave ntricu lar deep white matter ischem ic change s are noted. 4. No intra- axial or extra- axial hemato ma or midlin e shift is seen. 5. Bilate ral customer solutions supervisor al audito ry canals appear intact with good pneuma tizati on of the mastoi ds. 6. No other intrac ranial abnorm ality detect ed. Electr onical ly Signed 025 12:20 TOLU Degroot Electr onical ly Signed by: MARII MOTLEY at 2024 12:20: 00 PM Page 2 [email or web address] [facility] (Imaging) [address] [place], [address], 01/17/2025 16:06:49 01/14/20 25 01/13/2025 CT, head, w/wo contr ast No observ ation record ed. [facility] (One Call Scheduling) [address] [place], [address], 01/13/2025 12:27:37 Result Notes Documentation Provider Name and Address Organization Details Recorded Time Ct, Head, W/wo Contrast : [facility] [address] [place] [address] Patient Name: MATEO BELLE Sex: F : 1950 Dictated By: FABIAN MOTLEY Attending Physician: ANISHA JOHNSON Ordering Physician: ALEX HINOJOSA Exam Date: 01/12/2025 09:03 AM Exam Name: CT HEAD W/WO Admitting Diagnosis(es): Examination: CT HEAD W/WO CLINICAL INDICATION: Otalgia, left ear. COMPARISON: None. CONTRAST USED: Isovue 370. TECHNIQUE: The examination was performed obtaining 5 mm slices without and with contrast. CT scan done according to ALARA (As Low as Reasonably Achievable). Multiplanar reconstructions were obtained. FINDINGS: SUPRATENTORIAL BRAIN: Cerebral Hemispheres: There is prominence of the cerebral cortical sulci, cerebellar foliae, sylvian fissures, basal cisterns and ventricular system. There is no midline shift or mass effect, intra or extra-axial fluid collections or hemorrhage. Periventricular White Matter/Basal Ganglia: Lacunes in bilateral external capsules are noted. Minimal shannon and paraventricular deep white matter ischemic changes are noted. No other abnormal areas of altered attenuation within the periventricular white matter or basal ganglia. POSTERIOR FOSSA: The brainstem is normal and the visualized cerebellar hemispheres are otherwise unremarkable. Page 1 [facility] [address] [place] [address] Patient Name: MATEO BELLE Sex: F : 1950 Dictated By: FABIAN MOTLEY Attending Physician: ALEX HINOJOSA Ordering Physician: ALEX HINOJOSA Exam Date: 01/12/2025 09:03 AM Exam Name: CT HEAD W/WO Admitting Diagnosis(es): VENTRICULAR SYSTEM: There is no evidence of hydrocephalus or transependymal flow of cerebrospinal fluid. SKULL BASE AND PARASELLAR REGION: The skull base is normal with no parasellar masses or abnormalities identified. Bilateral external auditory canals appear intact with good pneumatization of the mastoids. CALVARIUM AND SCALP REGION: No abnormality is seen. PARANASAL SINUSES: No significant inflammatory changes are identified in the paranasal sinuses. IMPRESSION: 1. Age-related atrophy. 2. Lacunes in bilateral external capsules are noted. 3. Minimal shannon and paraventricular deep white matter ischemic changes are noted. 4. No intra-axial or extra-axial hematoma or midline shift is seen. 5. Bilateral external auditory canals appear intact with good pneumatization of the mastoids. 6. No other intracranial abnormality detected. Electronically Signed 01/12/2025 12:20 TOLU PERALTA Page 2 KELLEY Perry, [employer] 01/17/2025 16:06:49 Problems Name Problem SNOMED Code Status Onset Date Resolution Date Notes Provider Name and Address Organization Details Recorded Time Knee pain Active Not Available [facility] 3 05:56:49 Osteoarthr itis 632634675 Active Not Available [facility] 3 05:56:49 Carpal tunnel syndrome 85317707 Active Not Available [facility] 3 05:56:49 Derangemen t of knee 38501524 Active Not Available [facility] 3 05:56:49 Anterior ankle impingemen t 614242332 Active 2019 Not Available [facility] 3 05:56:48 Foot pain 12615968 Active 2019 Not Available [facility] 3 05:56:49 Bilateral sacroiliac joint pain 5529846751717 9104 Active 2021 Not Available [facility] 3 05:56:48 Lumbar spondylosi s 591028499 Active 2021 Not Available [facility] 3 05:56:48 Low back pain 140330718 Active 2021 Not Available [facility] 3 05:56:49 Right cervical root neuropathy 0315195804143 9108 Active 2021 Not Available [facility] 3 05:56:48 Pain of right knee joint 6756168954169 00 Active 2022 RAFAT Barillas, [employer] 3 14:21:00 Chondromal acia of right patella 5100115908545 9108 Active 2022 Yohannes Lazo MD [address], [address], [place], [address] , [facility] 3 15:05:01 Heart disease 63643628 Active 2023 Madhavi Ponce null, [facility] 4 09:45:41 Mass of subcutaneo us tissue of right foot 3570397924545 9105 Active 2023 Bud Black DPM [address], [address], [place], [address] , [facility] 4 10:05:00 Osteophyte of bone 1822498729961 00 Active 2023 Bud Black DPM [address], [address], [place], [address] , [facility] 4 10:21:21 Sensorineu ral hearing loss 87681967 Active 2024 Nelly Tanner RN null, [facility] 5 10:48:47 Dysfunctio n of left eustachian tube 4001235355212 106 Active 2024 MARGARETH Gonzalez [address] [facility], [address], [place], [address] , [facility] 5 10:52:23 Asymmetric al hearing loss 088056209 Active 2024 Nelly Tanner RN null, [facility] 5 14:44:26 Otalgia of left ear 5402985499 Active 2024 Alex Hinojosa MD [address], [address], [place], [address] , [facility] 5 14:46:07 Problem Notes None recorded. Procedures Surgical History Date Name Laterality Status Provider Name and Address Organization Details Recorded Time 02/18/20 Ortho - Cortisone Injection completed Yohannes Lazo MD [address], [address], [place], [address], [facility] 02/17/2023 15:03:44 Tubal Ligation completed Not Available [facility] 09/24/2022 05:52:57 tonsillectomy completed Not Available [facility] 09/24/2022 05:52:57 Imaging Results None recorded. Procedure Notes None recorded. Medical Equipment None Reported. Allergies Allergen ID Allergen Name Allergen Category Reaction Reaction Severity Criticality Documentation Date Start Date Code Code System Note Provider Name and Address Organization Details Recorded Time 46060 Product containin g penicilli n (product) medicatio n Not available Not available Not available 09/24/2022 15897 8001 SNOMED Not Available [facility] 06:02:43 Medications Name Sig [...] 20 mg by injection route. 09/[address] [facility]: 0003- 0494- 20 Not Available Not Available [...] TAKE 1 TABLET BY MOUTH TWICE DAILY active Not Available Not Available No t Available diclofenac sodium 75 mg tablet,michelle yed release 04/06 completed Not Available Not Available Not Available bisacodyl 5 mg tablet,michelle yed release TK 6 TS PO AT 8 AM ON THE 04/06 completed Not Available Not Available Not Available furosemide 20 mg tablet TK 1/2 T PO D PRF SWELLING 04/06 completed [...] APPLY A SMALL AMOUNT INTO AFFECTED EYE QHS 04/06 completed Not Available Not Available Not Available azithromyci n 500 mg tablet 05/29 completed Not Available Not Available Not Available ciprofloxac in 0.3 %-dexametha sone 0.1 % ear drops,suspe nsion INSTILL 4 DROPS INTO THE LEFT EAR TWICE DAILY FOR 7 DAYS 12/29 completed Not Available Not Available Not Available rosuvastati n 10 mg tablet TAKE [...] 20 mg by injection route. 09/[address] [facility] 83805 -064- 01 Not Available Not Available Not Available Linzess 290 mcg capsule TK ONE C PO QD 04/06 completed Not Available Not Available Not Available Fluzone High-Dose 2014- (PF) 180 mcg/0.5 mL intramuscul ar syringe 04/06 completed Not Available Not Available Not Available Fluad 2016- 65yr up(PF)45 mcg(15 mcgx3)/0.5 mL intramuscul ar syringe ADM 0.5ML IM UTD 04/06 completed Not Available Not Available Not Available Fluzone High-Dose (PF) 180 mcg/0.5 mL intramuscul ar syringe ADM 0.5ML IM UTD 04/06 completed Not Available Not Available Not Available Fluad Quad 0526-2546(6 5yr up)(PF) 60 mcg (15 mcg x [...] Updated DateTime 09/22/2024 167.64 cm 22.3 kg/m2 34774.47 g Nelly Tanner, [facility] [employer] [facility] 09/22/2024 10:29:38 Date Recorded Body height Body mass index (BMI) Body weight Provider Name and Address Organization Details Last Updated DateTime 10/27/2023 167.64 cm 21 kg/m2 53343.01 g Madhavi Ponce [facility] 10/27/2023 09:40:22 Date Recorded Body height Body mass index (BMI) Body weight Heart rate Systolic And Diastolic Provider Name and Address Organization Details Last Updated DateTime 11/17/2023 167.64 cm 21 kg/m2 61496.01 g 71 /min 124/71 mm[Hg] Madhavi Ponce [facility] 09:33:20 Date Recorded Body height Body mass index (BMI) Body weight Body temperature Provider Name and Address Organization Details Last Updated DateTime 12/29/2024 167.64 cm 22.4 kg/m2 66996.34 g 97.3 [degF] Nelly Tanner RN [facility] 12/29/2024 14:22:40 Date Recorded Body height Body mass index (BMI) Body weight Provider Name and Address Organization Details Last Updated DateTime 03/17/2023 167.64 cm 20.8 kg/m2 20277.42 g RAFAT Barillas [facility] 03/17/2023 14:01:02 Social History Question Answer Notes LastModified by [employer] Details LastModified Time Tobacco Smoking Status Never Smoker Not Available [facility] 09/24/2022 05:52:38 In The 14 Days Before Symptom Onset, Have You Had Close Contact With A Laboratory-confirm ed COVID-19 While That Case Was Ill? No [id number] Information not available 09/24/2022 In The 14 Days Before Symptom Onset, Have You Had Close Contact With A Person Who Is Under Investigation For COVID-19 While That Person Was Ill? No [id number] Information not available 09/24/2022 Have You Recently Traveled Abroad? No [id number] Information not available 09/24/2022 Sex: Unknown Functional Status Question Answer Note LastModified by [employer] Details LastModified Time What is your level of alcohol consumption? None [id number] Information not available 09/24/2022 Mental Status None recorded. Family History Relationship Description Onset Age of this Age Resolved Age Notes LastModified by Organization Details LastModified Time Unspecified Relation Heart disease [id number] Not available 09/24/2022 05:52:58 Unspecified Relation Hypertensive disorder [id number].014 [id number] Not available 09/24/2022 05:52:58 Unspecified Relation Arthritis [...] SNOMED-CT Code Diagnosis ICD10 Code Diagnosis Note 211113 S_Histor ic_Gateway _ATHENA_M IGRATION_ DEFAULT_1 _1 , 06/28/2021 00:00:00 06/28/2021 11:25:12 [id number] Yohannes Lazo MD [facility] [place] [address] [place] [address] 09/26/2021 00:00:00 09/26/2021 16:20:51 [id number] Yohannes Lazo MD [facility] [place] [address] [place] [address] 11/07/2021 00:00:00 11/07/2021 11:22:58 [id number] Alex Hinojosa MD [facility] ENT [place] [address] [place] [address] 06/12/2022 00:00:00 06/12/2022 12:00:45 [id number] Yohannes Lazo MD [facility] [place] [address] [place] [address] 02/17/2023 13:52:32 02/17/2023 15:24:07 Pain of right knee joint 0497039526 37736 M25.561 Chondromal acia of right patella 7957440097 1884133 M22.41 [id number] Yohannes Lazo MD [facility] [place] [address] [place] [address] 03/17/2023 13:56:38 03/17/2023 14:43:33 Chondromalacia of right patella 9062865428 2158710 M22.41 [id number] Bud Black DPM [facility] [place] [address] [facility] [address] [place] [address] 10/27/2023 09:37:29 10/27/2023 10:31:10 Mass of subcutaneous tissue of right foot 0404147051 0222439 R22.41 medial right footobtain testing to rule out etiology possible ganglionco ntinue offloading and supportive shoe gearfollow -up to review testing possible MRI depending on test results [id number] Bud Black DPM [facility] [place] [address] [facility] [address] [place] [address] 11/17/2023 09:30:30 11/17/2023 10:38:18 Mass of subcutaneous tissue of right foot 0924199644 8858121 R22.41 ultrasound negexam foot daily for changes if present return for cont testingcon t supportive shoe gearfollow up as needed Osteophyte of bone 59831 03300 65010 M77.9 navicular - as above [id number] Alex Hinojosa MD [facility] [place] [address] [place] [address] 09/22/2024 10:26:14 09/22/2024 10:54:23 Sensorineural hearing loss 33806006 H90.5 Dysfunctio n of left eustachian tube 2624108236 206281 H69.92 [id number] Alex Hinojosa MD [facility] [place] [address] [place] [address] 12/29/2024 14:16:29 12/30/2024 15:55:10 Otalgia of left ear 6614475452 H92.02 Health Concerns Section Related Observation LastModified by Organization Detai ls LastModified Time None Recorded Concern Status LastModified by Organization Details LastModified Time None Recorded Advance Directives Directive None Recorded Payers Insurance Date Sequence Insurance Name Policy Number Policy Rosenberg Covered Member ID Rosenberg Member ID Guarantor Name 12/27/2024 1 [place] Mateo Belle [id number] Mateoann NicholsYoshi 12/28/2024 2 [employer] - PLAN G (MEDICARE SUPPLEMENT) Mateo Belle [id number] Mateo Belle Notes Date Note Type Note Provider Name and Address Organization Details Recorded Time 03/17/2023 text/html Patient presents knee pain right. She has got tenderness to palpation pain to manipulation right knee. Pain remains in the front of the knee and it is worse with activity. Yohannes Lazo MD [address], [address], [place], [address], [employer] 03/17/2023 14:35:49 10/27/2023 text/html . Patient is [...] or infection. 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 Patient states this has been ongoing for about a month or so. Patient denies any treatment for this condition. Bud Black DPM [address], [place], [address], [employer] 10/27/2023 10:09:09 11/17/2023 text/html Patient returns for follow up testing on possible soft tissue mass. ultrasound was neg. and found to be wendy navicular attachment. Patient denies any new complaints. Patient is to watch the area if becomes painful or has any changes to soft tissue to return for further testing. Bud Black DPM [address], [address], [place], [address], [employer] 11/17/2023 10:22:25 09/22/2024 text/html This patient has [...] has any relation to her current symptoms. Nelly Dougherty, MARGARETH [address], [place], [address], [facility] [employer] [facility] 09/22/2024 10:53:42 12/29/2024 text/html This patient has fleeting left ear shooting pains that last 5 minutes or less. She has no ear ache however. She reports her hearing is normal and we are awaiting the results of her audiogram. She did have a head CT in 2021. Alex Hinojosa MD [address] [place] [address], [place] [address], [place], [address], [facility] [employer] [facility] 12/29/2024 14:49:01 OBGyn Episode No OBEpisode recorded.
== END 2025-02-15 15:03 | disposition home or self-care (01) ==
PROVIDERS: Visit Provider Obstetrics & Gynecology
DX: Z12.31 Encounter for screening mammogram for malignant neoplasm of breast (principal)
CPT/HCPCS: 77063; 77067